=== PATIENT | female | born 1965 | race Caucasian/White ===

== ENCOUNTER 2016-09-13 08:01 | Emergency (ER) | payer BC ==
[~2016-09-13] VITALS: Ht 157.5 cm; Wt 75.7 kg
[2016-09-13 08:06] VITALS: BP 158/93
--- NOTE | 2016-09-13 08:12 | NUR ---
Patient to bed 05.
--- NOTE | 2016-09-13 08:17 | NUR ---
PATIENT PRESENTS TO ED WITH C/O HEADACHE WITH NAUSEA AND DIZZINESS X LAST NIGHT---DENIES INJURY; HX---HTN . DENIES V/D; SKIN IS PINK/WARM/DRY; AAOX4 WITH EVEN AND STEADY GAIT; LUNGS CLEAR BL; HR EVEN AND REGULAR; PT DENIES ANY FEVER, CP, SOB, OR COUGH AT THIS TIME; PATIENT STATES PAIN OF 10/10 AT THIS TIME; VSS; PATIENT POSITIONED FOR COMFORT; HOB ELEVATED; BEDRAILS UP X2; BED DOWN. ER MD MADE AWARE OF PT STATUS.
--- NOTE | 2016-09-13 08:23 | NUR ---
Dr. Salomon evalauting patient at bedside.
[2016-09-13] MEDS ORDERED: diphenhydrAMINE 50 MG/ML VIAL IM ONE (08:25)
[2016-09-13] MEDS ORDERED: PROMETHAZINE 25 MG/ML VIAL IM ONE (08:25)
[2016-09-13] MEDS ORDERED: HYDROmorphone 1 MG/ML AMP IM ONE (09:10)
[2016-09-13 09:50] VITALS: BP 158/77
--- NOTE | 2016-09-13 09:50 | NUR ---
Patient discharged with v/s stable. Written and verbal after care instructions given and explained. Patient alert, oriented and verbalized understanding of instructions. Ambulatory with steady gait. All questions addressed prior to discharge. ID band removed. Patient advised to follow up with PMD. Rx of TYLENOL, ZOFRAN given. Patient educated on indication of medication including possible reaction and side effects. Opportunity to ask questions provided and answered.
== END 2016-09-13 09:50 | disposition home or self-care (01) ==
LOC: MED 08:07
DX: G44.209 Tension-type headache, unspecified, not intractable (principal); I10 Essential (primary) hypertension
CPT/HCPCS: 96372; 99284; J1170; J1200; J2550

== ENCOUNTER 2019-05-07 11:52 | Emergency (ER) | payer BC, OTHER ==
[~2019-05-07] VITALS: Ht 157.5 cm; Wt 70.3 kg
[2019-05-07 12:11] VITALS: BP 168/74
[2019-05-07] MEDS ORDERED: AMLO1CAP PO (12:19)
[2019-05-07] MEDS ORDERED: METF-335 PO (12:19)
[2019-05-07] MEDS ORDERED: GLIP5TAB4 PO (12:19)
--- NOTE | 2019-05-07 12:19 | NUR ---
URINE CUP HANDED TO PT FOR SAMPLE
--- NOTE | 2019-05-07 13:35 | NUR ---
C/O INTERMITTENT SHARP STABBING EPIGASTRIC PAIN X 3 DAYS WITH MINIMAL NAUSEA AND LOOSE STOOLS----PT AWAKE,ALERT,AMBULATORY WITH STEADY GAIT.POSITIVE TENDERNESS IN EPIGASTRIC AREA. HX--DM, HTN RX---
--- NOTE | 2019-05-07 13:35 | NUR ---
Patient ambulated to bed 8 with family. RN evaluating patient at bedside.
[2019-05-07 13:37] LABS: APPEARANCE,URINE CLEAR (CLEAR); BILIRUBIN,URINE NEGATIVE (NEGATIVE); BLOOD, URINE NEGATIVE (NEGATIVE); COLOR,URINE YELLOW (YELLOW); LEUKOCYTE ESTERASE ,URINE NEGATIVE (NEGATIVE); NITRITE, URINE NEGATIVE (NEGATIVE); UGLUCOSE 3+ (NEGATIVE)
[2019-05-07 13:39] LABS: BASOPHILS # (AUTO) 0.1 K/uL (0.00-0.22); BASOPHILS % (AUTO) 0.6 % (0.0-2.0); EOSINOPHILS # (AUTO) 0.2 K/uL (0-0.4); HEMATOCRIT 43.3 % (36-48); HEMOGLOBIN 14.8 g/dL (12.0-16.0); MEAN CORPUSCULAR HEMOGLOBIN 30 pg (27-31); MEAN CORPUSCULAR HGB CONC 34 g/dL (33-37); MEAN CORPUSCULAR VOLUME 87.6 fL (80-94); MONOCYTES # (AUTO) 0.4 K/uL (0.8-1.0); MONOCYTES % (AUTO) 4.5 % (1.7-9.3); NEUTROPHILS # (AUTO) 5.5 K/uL (1.8-7.7); NEUTROPHILS % (AUTO) 67.9 % (42.2-75.2); PLATELET COUNT (AUTO) 214 K/uL (140-450); RED BLOOD CELL COUNT(AUTO) 4.94 MIL/uL (4.20-5.40); RED CELL DISTRIBUTION WIDTH 13.7 % (11.6-13.7); WHITE BLOOD COUNT (AUTO) 8.1 K/uL (4.8-10.8)
[2019-05-07 13:51] LABS: ANION GAP 16.1 (8-16); CARBON DIOXIDE 24.8 mmol/L (21-32); CREATININE 0.7 mg/dL (0.6-1.3); POTASSIUM 3.9 mmol/L (3.5-5.1)
[2019-05-07 13:59] LABS: ALBUMIN 4.1 g/dL (3.4-5.0); TOTAL BILIRUBIN 1.1 mg/dL (0.0-1.0)
[2019-05-07] MEDS ORDERED: KETOROLAC 60 MG/2 ML VIAL IM ONE (15:30)
--- NOTE | 2019-05-07 15:30 | NUR ---
PT'S FAMILY APPROACHED NURSES STATION REQUESTING FOR PAIN MEDICATION. DR. DING MADE AWARE, WILL MONITOR FOR PENDING ORDERS.
[2019-05-07 16:00] VITALS: BP 150/74
--- NOTE | 2019-05-07 16:00 | NUR ---
Patient discharged with v/s stable. Written and verbal after care instructions given and explained abdominal pain. Patient alert, oriented and verbalized understanding of instructions. Ambulatory with steady gait. All questions addressed prior to discharge. ID band removed. Patient advised to follow up with PMD. Rx of imodium,motrin,prilosec,zofran , norco given. Patient educated on indication of medication including possible reaction and side effects. Opportunity to ask questions provided and answered.Excuse from work given.
== END 2019-05-07 16:00 | disposition home or self-care (01) ==
LOC: MED 11:52
DX: R10.13 Epigastric pain (principal); R19.7 Diarrhea, unspecified; R11.0 Nausea; E11.9 Type 2 diabetes mellitus without complications; I10 Essential (primary) hypertension; Z79.84 Long term (current) use of oral hypoglycemic drugs; Z79.899 Other long term (current) drug therapy
CPT/HCPCS: 36415; 80053; 81003; 83690; 85025; 96372; 99283; J1885

== ENCOUNTER 2020-07-28 12:34 | Emergency (ER) | payer OTHER ==
[~2020-07-28] VITALS: Ht 157.5 cm; Wt 56.2 kg
[~2020-07-28 12:34] MED LIST: AMLO1CAP PO; GLIP5TAB14 PO; METF-335 PO
[2020-07-28 12:39] VITALS: BP 147/83
[2020-07-28] MEDS ORDERED: AMLO1CAP PO (12:56)
[2020-07-28] MEDS ORDERED: GLIP10TA3 PO (12:56)
[2020-07-28] MEDS ORDERED: METF500T PO (12:56)
[2020-07-28 13:05] VITALS: BP 147/83
== END 2020-07-28 13:05 | disposition home or self-care (01) ==
LOC: MED 12:34
DX: E11.9 Type 2 diabetes mellitus without complications (principal); I10 Essential (primary) hypertension; Z76.0 Encounter for issue of repeat prescription; Z79.899 Other long term (current) drug therapy; Z79.84 Long term (current) use of oral hypoglycemic drugs
CPT/HCPCS: 99281

== ENCOUNTER 2022-04-26 23:24 | Emergency (ER) | payer OTHER ==
[~2022-04-26] VITALS: Ht 154.9 cm; Wt 62.1 kg
[~2022-04-26 23:24] MED LIST changes: +GLIP10TA3 PO; +METF-346 PO
[2022-04-26 23:49] VITALS: BP 122/73
--- NOTE | 2022-04-26 23:53 | NUR ---
TO LOBBY A/W BED AMBULATORY
--- NOTE | 2022-04-27 01:45 | NUR ---
Patient being evaluated by physician
[2022-04-27] MEDS ORDERED: NACL 0.9% 500 ML IV ONE (01:50)
[2022-04-27] MEDS ORDERED: ONDANSETRON 4 MG/2 ML VIAL IVP ONE (01:50)
--- NOTE | 2022-04-27 01:50 | NUR ---
PTs daughter: LARRY GONSALEZ # [phone]
--- NOTE | 2022-04-27 01:50 | NUR ---
PT TO BED 11
[2022-04-27 02:36] LABS: BASOPHILS % (AUTO) 0.4 % (0.0-2.0); EOSINOPHILS # (AUTO) 0.2 K/uL (0-0.4); EOSINOPHILS % (AUTO) 1.7 % (0.0-4.0); HEMATOCRIT 41.6 % (36-48); HEMOGLOBIN 14.5 g/dL (12.0-16.0); LYMPHOCYTES # (AUTO) 0.8 K/uL (2.5-16.5); LYMPHOCYTES % (AUTO) 8.4 % (20.5-51.1); MEAN CORPUSCULAR HEMOGLOBIN 30 pg (27-31); MEAN CORPUSCULAR HGB CONC 35 g/dL (33-37); MEAN CORPUSCULAR VOLUME 85.7 fL (80-94); MONOCYTES # (AUTO) 0.5 K/uL (0.8-1.0); MONOCYTES % (AUTO) 4.9 % (1.7-9.3); NEUTROPHILS # (AUTO) 8.2 K/uL (1.8-7.7); NEUTROPHILS % (AUTO) 84.6 % (42.2-75.2); PLATELET COUNT (AUTO) 274 K/uL (140-450); RED BLOOD CELL COUNT(AUTO) 4.85 MIL/uL (4.20-5.40); RED CELL DISTRIBUTION WIDTH 13.3 % (11.6-13.7); WHITE BLOOD COUNT (AUTO) 9.7 K/uL (4.8-10.8)
[2022-04-27 02:38] LABS: APPEARANCE,URINE CLEAR (CLEAR); BILIRUBIN,URINE NEGATIVE (NEGATIVE); BLOOD, URINE NEGATIVE (NEGATIVE); COLOR,URINE YELLOW (YELLOW); LEUKOCYTE ESTERASE ,URINE NEGATIVE (NEGATIVE); NITRITE, URINE NEGATIVE (NEGATIVE); UGLUCOSE 3+ (NEGATIVE)
[2022-04-27 02:45] LABS: ALBUMIN 3.9 g/dL (3.4-5.0); ANION GAP 13.4 (8-16); CARBON DIOXIDE 30.6 mmol/L (21-32); CREATININE 0.7 mg/dL (0.6-1.3); TOTAL BILIRUBIN 1.2 mg/dL (0.0-1.0)
[2022-04-27] MEDS ORDERED: INSULIN REGULAR, HUMAN 100 UNIT/ML VIAL IVP ONE (02:50)
--- NOTE | 2022-04-27 03:40 | NUR ---
PT RETURN FROM RADIOLOGY
[2022-04-27 04:45] VITALS: BP 122/73
--- NOTE | 2022-04-27 04:45 | NUR ---
Patient discharged with v/s stable. Written and verbal after care instructions given and explained. Patient verbalized understanding. Ambulatory with steady gait. All questions addressed prior to discharge. Advised to follow up with PMD.
== END 2022-04-27 04:45 | disposition home or self-care (01) ==
LOC: MED 23:24
DX: R10.84 Generalized abdominal pain (principal); E11.65 Type 2 diabetes mellitus with hyperglycemia; R11.10 Vomiting, unspecified; I10 Essential (primary) hypertension; Z79.899 Other long term (current) drug therapy; Z79.84 Long term (current) use of oral hypoglycemic drugs
CPT/HCPCS: 36415; 74176; 80053; 81003; 85025; 96361; 96374; 96375; 99284; J1815; J2405; J7030

== ENCOUNTER 2022-07-27 21:48 | Emergency (ER) | payer OTHER ==
[~2022-07-27] VITALS: Ht 154.9 cm; Wt 63.5 kg
[2022-07-27 22:00] VITALS: BP 139/80
--- NOTE | 2022-07-27 22:03 | NUR ---
TO LOBBY A/W BED AMBULATORY
--- NOTE | 2022-07-28 00:34 | NUR ---
Dr. Cárdenas examining patient.
--- NOTE | 2022-07-28 00:44 | NUR ---
PT TAKEN TO RADIOLOGY
[2022-07-28 01:41] LABS: BASOPHILS % (AUTO) 0.5 % (0.0-2.0); EOSINOPHILS # (AUTO) 0.2 K/uL (0-0.4); EOSINOPHILS % (AUTO) 2.5 % (0.0-4.0); HEMATOCRIT 38.9 % (36-48); HEMOGLOBIN 13.6 g/dL (12.0-16.0); LYMPHOCYTES # (AUTO) 1.8 K/uL (2.5-16.5); LYMPHOCYTES % (AUTO) 27.7 % (20.5-51.1); MEAN CORPUSCULAR HEMOGLOBIN 30 pg (27-31); MEAN CORPUSCULAR HGB CONC 35 g/dL (33-37); MEAN CORPUSCULAR VOLUME 86.1 fL (80-94); MONOCYTES # (AUTO) 0.5 K/uL (0.8-1.0); MONOCYTES % (AUTO) 7.4 % (1.7-9.3); NEUTROPHILS # (AUTO) 3.9 K/uL (1.8-7.7); NEUTROPHILS % (AUTO) 61.9 % (42.2-75.2); PLATELET COUNT (AUTO) 222 K/uL (140-450); RED BLOOD CELL COUNT(AUTO) 4.52 MIL/uL (4.20-5.40); RED CELL DISTRIBUTION WIDTH 13.1 % (11.6-13.7); WHITE BLOOD COUNT (AUTO) 6.4 K/uL (4.8-10.8)
[2022-07-28 02:00] LABS: ALBUMIN 3.9 g/dL (3.4-5.0); ANION GAP 13.3 (8-16); CARBON DIOXIDE 26.6 mmol/L (21-32); CREATININE 0.6 mg/dL (0.6-1.3); POTASSIUM 3.9 mmol/L (3.5-5.1); TOTAL BILIRUBIN 0.8 mg/dL (0.0-1.0)
[2022-07-28] MEDS ORDERED: NAPR-54 PO (03:41)
[2022-07-28 03:45] VITALS: BP 121/78
--- NOTE | 2022-07-28 03:45 | NUR ---
Patient discharged with v/s stable. Written and verbal after care instructions given and explained, BY Patient alert, oriented and verbalized understanding of instructions. Ambulatory with steady gait. All questions addressed prior to discharge. ID band removed. Patient advised to follow up with PMD. Rx OF NAPROSYN given. Patient educated on indication of medication including possible reaction and side effects. Opportunity to ask questions provided and answered.
== END 2022-07-28 03:45 | disposition home or self-care (01) ==
LOC: MED 21:48
DX: S23.8XXA Sprain of other specified parts of thorax, initial encounter (principal); S43.491A Other sprain of right shoulder joint, initial encounter; E11.9 Type 2 diabetes mellitus without complications; I10 Essential (primary) hypertension; Z79.4 Long term (current) use of insulin; Z79.899 Other long term (current) drug therapy; X58.XXXA Exposure to other specified factors, initial encounter; Y93.89 Activity, other specified; Y92.89 Other specified places as the place of occurrence of the external cause; Y99.8 Other external cause status
CPT/HCPCS: 36415; 71250; 76641; 80053; 85025; 99284; Q0092

== ENCOUNTER 2022-08-26 07:24 | Emergency (ER) | payer OTHER ==
[~2022-08-26] VITALS: Ht 149.9 cm; Wt 66.7 kg
[~2022-08-26 07:24] MED LIST changes: +NAPR-54 PO
[2022-08-26 07:34] VITALS: BP 140/86
--- NOTE | 2022-08-26 07:45 | NUR ---
ASSESMENT PER FLOWSHEET. COMFORT MEASURES AND SUPPORTIVE CARE INITIATED. PT STATES SHE IS BEING SEEN BY PMD AND HAS HAD BREAST ULTRASOUND AND MAMMOGRAM FOR PAIN X 2 MONTHS.
--- NOTE | 2022-08-26 08:07 | NUR ---
SEEN BY FABIAN. PACE ANALYST ALEX BELL.
[2022-08-26] MEDS ORDERED: KETOROLAC 60 MG/2 ML VIAL IM ONE (08:10)
--- NOTE | 2022-08-26 08:20 | NUR ---
MEDICATED FOR PAIN PER ORDER. PT RUTHIE WELL.
[2022-08-26] MEDS ORDERED: ACET-8905 PO (08:43)
[2022-08-26 08:58] VITALS: BP 122/83
== END 2022-08-26 08:58 | disposition home or self-care (01) ==
LOC: MED 07:24
DX: R07.89 Other chest pain (principal); E11.9 Type 2 diabetes mellitus without complications; I10 Essential (primary) hypertension; Z90.710 Acquired absence of both cervix and uterus; Z79.899 Other long term (current) drug therapy; Z79.1 Long term (current) use of non-steroidal anti-inflammatories (NSAID)
CPT/HCPCS: 93005; 96372; 99283; J1885

== ENCOUNTER 2022-09-15 18:53 | Emergency (ER) | payer OTHER ==
[~2022-09-15] VITALS: Ht 147.3 cm; Wt 64.0 kg
[~2022-09-15 18:53] MED LIST changes: +ACET-8905 PO
[2022-09-15 20:18] VITALS: BP 143/84
--- NOTE | 2022-09-15 20:35 | NUR ---
PT to bed 12
[2022-09-15] MEDS ORDERED: NACL 0.9% 2,000 ML IV ONE (20:45)
--- NOTE | 2022-09-15 20:47 | NUR ---
Patient resting in bed, A/Ox4, chest rise and fall symmetrical, no c/o pain of s/s of distress, on monitor.
[2022-09-15 21:00] LABS: BASOPHILS % (AUTO) 0.4 % (0.0-2.0); EOSINOPHILS % (AUTO) 0.1 % (0.0-4.0); HEMATOCRIT 39.6 % (36-48); HEMOGLOBIN 13.8 g/dL (12.0-16.0); LYMPHOCYTES # (AUTO) 1.5 K/uL (2.5-16.5); LYMPHOCYTES % (AUTO) 21.6 % (20.5-51.1); MEAN CORPUSCULAR HEMOGLOBIN 30 pg (27-31); MEAN CORPUSCULAR HGB CONC 35 g/dL (33-37); MONOCYTES # (AUTO) 0.5 K/uL (0.8-1.0); MONOCYTES % (AUTO) 7.6 % (1.7-9.3); NEUTROPHILS % (AUTO) 70.3 % (42.2-75.2); PLATELET COUNT (AUTO) 256 K/uL (140-450); RED BLOOD CELL COUNT(AUTO) 4.66 MIL/uL (4.20-5.40); RED CELL DISTRIBUTION WIDTH 13.3 % (11.6-13.7); WHITE BLOOD COUNT (AUTO) 7.1 K/uL (4.8-10.8)
[2022-09-15 21:11] LABS: ANION GAP 13.7 (8-16); CARBON DIOXIDE 25.5 mmol/L (21-32); CREATININE 0.7 mg/dL (0.6-1.3); POTASSIUM 4.2 mmol/L (3.5-5.1)
[2022-09-15] MEDS ORDERED: INSULIN LISPRO 100 UNITS/ML VIAL SUBQ ONE (21:25)
--- NOTE | 2022-09-15 22:00 | NUR ---
Patient resting in bed, A/Ox4, chest rise and fall symmetrical, no c/o pain of s/s of distress, on monitor.
[2022-09-15] MEDS ORDERED: NACL 0.9% 1,000 ML IV ONE (22:40)
[2022-09-15 23:20] VITALS: BP 131/85
== END 2022-09-15 23:20 | disposition home or self-care (01) ==
LOC: MED 18:53
DX: E11.65 Type 2 diabetes mellitus with hyperglycemia (principal); I10 Essential (primary) hypertension; R06.02 Shortness of breath; R63.1 Polydipsia; R35.89 Other polyuria; Z79.4 Long term (current) use of insulin; Z79.899 Other long term (current) drug therapy
CPT/HCPCS: 36415; 80048; 82948; 85025; 96360; 96361; 96372; 99283; J1815; J7030

== ENCOUNTER 2022-09-19 04:03 | Emergency (ER) | payer OTHER ==
[~2022-09-19] VITALS: Ht 152.4 cm; Wt 64.0 kg
[2022-09-19 04:03] VITALS: BP 149/76
--- NOTE | 2022-09-19 04:06 | NUR ---
TO LOBBY A/W BED AMBULATORY
[2022-09-19] MEDS ORDERED: NACL 0.9% 1,000 ML IV ONE (04:50)
--- NOTE | 2022-09-19 04:50 | NUR ---
MEDICATED PER [facility]MDS ORDER, TOLERATED WELL.
[2022-09-19 04:59] LABS: BASOPHILS % (AUTO) 0.6 % (0.0-2.0); EOSINOPHILS # (AUTO) 0.1 K/uL (0-0.4); EOSINOPHILS % (AUTO) 0.7 % (0.0-4.0); HEMATOCRIT 42.3 % (36-48); HEMOGLOBIN 14.8 g/dL (12.0-16.0); LYMPHOCYTES # (AUTO) 1.6 K/uL (2.5-16.5); LYMPHOCYTES % (AUTO) 22.7 % (20.5-51.1); MEAN CORPUSCULAR HEMOGLOBIN 30 pg (27-31); MEAN CORPUSCULAR HGB CONC 35 g/dL (33-37); MEAN CORPUSCULAR VOLUME 84.9 fL (80-94); MONOCYTES # (AUTO) 0.4 K/uL (0.8-1.0); MONOCYTES % (AUTO) 5.3 % (1.7-9.3); NEUTROPHILS % (AUTO) 70.7 % (42.2-75.2); PLATELET COUNT (AUTO) 243 K/uL (140-450); RED BLOOD CELL COUNT(AUTO) 4.97 MIL/uL (4.20-5.40); RED CELL DISTRIBUTION WIDTH 13.2 % (11.6-13.7); WHITE BLOOD COUNT (AUTO) 7.1 K/uL (4.8-10.8)
[2022-09-19 05:07] LABS: ALBUMIN 4.5 g/dL (3.4-5.0); ANION GAP 14.2 (8-16); CARBON DIOXIDE 27.9 mmol/L (21-32); CREATININE 0.7 mg/dL (0.6-1.3); POTASSIUM 4.1 mmol/L (3.5-5.1)
[2022-09-19] MEDS ORDERED: INSULIN REGULAR, HUMAN 100 UNIT/ML VIAL SUBQ ONE (05:45)
[2022-09-19 06:27] VITALS: BP 121/80
== END 2022-09-19 06:27 | disposition home or self-care (01) ==
LOC: MED 04:03
DX: E11.65 Type 2 diabetes mellitus with hyperglycemia (principal); E86.0 Dehydration; Z79.899 Other long term (current) drug therapy; Z79.4 Long term (current) use of insulin
CPT/HCPCS: 36415; 80053; 85025; 96360; 96372; 99283; J1815; J7030

== ENCOUNTER 2022-12-13 21:15 | Emergency (ER) | payer OTHER ==
[~2022-12-13] VITALS: Ht 157.5 cm; Wt 63.5 kg
[2022-12-13 21:39] VITALS: BP 135/78; PULSE 103; RESP 16; TEMP 97.4; O2SAT 98
[2022-12-13] MEDS ORDERED: NIRM1TAB5 PO (22:35)
[2022-12-13] MEDS ORDERED: ACET-10509 PO (22:36)
[2022-12-13] MEDS ORDERED: IBUP-1842 PO (22:36)
[2022-12-13 23:00] VITALS: BP 120/70; PULSE 102; RESP 18; O2SAT 97
== END 2022-12-13 23:00 | disposition home or self-care (01) ==
LOC: MED 21:15
DX: U07.1 COVID-19 (principal); E11.9 Type 2 diabetes mellitus without complications; I10 Essential (primary) hypertension; Z79.899 Other long term (current) drug therapy; Z79.01 Long term (current) use of anticoagulants
CPT/HCPCS: 99283

== ENCOUNTER 2023-07-28 07:45 | Emergency (ER) | payer SELFPAY ==
[~2023-07-28] VITALS: Ht 149.9 cm; Wt 64.6 kg
[~2023-07-28 07:45] MED LIST changes: +ACET-10509 PO; -GLIP5TAB14 PO; +GLIP5TAB24 PO; +IBUP-1842 PO; +NIRM1TAB5 PO
[2023-07-28 07:50] VITALS: BP 132/78; PULSE 99; RESP 16; TEMP 97.1; O2SAT 100
[2023-07-28] MEDS: KETOROLAC 30 MG/ML VIAL IVP ONE (08:28)
[2023-07-28 08:35] LABS: BASOPHILS % (AUTO) 0.7 % (0.0-2.0); EOSINOPHILS # (AUTO) 0.1 K/uL (0-0.4); EOSINOPHILS % (AUTO) 1.9 % (0.0-4.0); HEMATOCRIT 39.1 % (36-48); HEMOGLOBIN 13.7 g/dL (12.0-16.0); LYMPHOCYTES # (AUTO) 1.5 K/uL (2.5-16.5); LYMPHOCYTES % (AUTO) 24.4 % (20.5-51.1); MEAN CORPUSCULAR HEMOGLOBIN 30 pg (27-31); MEAN CORPUSCULAR HGB CONC 35 g/dL (33-37); MONOCYTES # (AUTO) 0.3 K/uL (0.8-1.0); MONOCYTES % (AUTO) 5.2 % (1.7-9.3); NEUTROPHILS # (AUTO) 4.2 K/uL (1.8-7.7); NEUTROPHILS % (AUTO) 67.8 % (42.2-75.2); PLATELET COUNT (AUTO) 214 K/uL (140-450); RED BLOOD CELL COUNT(AUTO) 4.54 MIL/uL (4.20-5.40); RED CELL DISTRIBUTION WIDTH 13.6 % (11.6-13.7); WHITE BLOOD COUNT (AUTO) 6.3 K/uL (4.8-10.8)
[2023-07-28 08:47] LABS: ANION GAP 12.1 (8-16); CALCIUM 8.7 mg/dL (8.5-10.1); CARBON DIOXIDE 27.7 mmol/L (21-32); CREATININE 0.6 mg/dL (0.6-1.3); POTASSIUM 3.8 mmol/L (3.5-5.1)
[2023-07-28 08:51] LABS: BILIRUBIN,DIRECT 0.1 mg/dL (0.0-0.3); TOTAL PROTEIN, SERUM 7.5 g/dL (6.4-8.2)
[2023-07-28 09:28] LABS: APPEARANCE,URINE CLEAR (CLEAR); BILIRUBIN,URINE NEGATIVE (NEGATIVE); BLOOD, URINE NEGATIVE (NEGATIVE); COLOR,URINE YELLOW (YELLOW); LEUKOCYTE ESTERASE ,URINE NEGATIVE (NEGATIVE); NITRITE, URINE NEGATIVE (NEGATIVE); PROTEIN,URINE NEGATIVE (NEGATIVE); UGLUCOSE 3+ (NEGATIVE); UROBILINOGEN,URINE 0.2 EU/dL (0.2 - 1)
[2023-07-28] MEDS ORDERED: MIRABULK PO (09:30)
[2023-07-28 09:32] LABS: BACTERIA,URINE OCCASSIONAL /HPF (None Seen); RBC,URINE 0-5 /HPF (0-5); SQUAMOUS EPITHELIAL CELL,UR 0-3 (FEW) /LPF (0-3 (FEW)); WBC,URINE 0-5 /HPF (0-5)
[2023-07-28 09:51] VITALS: BP 144/72; PULSE 79; RESP 15; TEMP 98; O2SAT 99
== END 2023-07-28 09:53 | disposition home or self-care (01) ==
LOC: MED 07:45
DX: R10.84 Generalized abdominal pain (principal); K59.00 Constipation, unspecified; E11.65 Type 2 diabetes mellitus with hyperglycemia; I10 Essential (primary) hypertension; Z79.4 Long term (current) use of insulin; Z79.899 Other long term (current) drug therapy
CPT/HCPCS: 36415; 74176; 80048; 80076; 81001; 81025; 83690; 85025; 96374; 99285; J1885

== ENCOUNTER 2023-08-05 05:50 | Emergency (ER) | payer MEDICAID ==
[~2023-08-05] VITALS: Ht 152.4 cm; Wt 62.6 kg
[~2023-08-05 05:50] MED LIST changes: +MIRABULK PO
[2023-08-05 06:04] VITALS: BP 131/75; PULSE 85; RESP 16; TEMP 97.6; O2SAT 99
[2023-08-05 07:40] LABS: BASOPHILS # (AUTO) 0.1 K/uL (0.00-0.22); BASOPHILS % (AUTO) 0.9 % (0.0-2.0); EOSINOPHILS # (AUTO) 0.1 K/uL (0-0.4); HEMATOCRIT 40.2 % (36-48); LYMPHOCYTES # (AUTO) 1.4 K/uL (2.5-16.5); LYMPHOCYTES % (AUTO) 25.8 % (20.5-51.1); MEAN CORPUSCULAR HEMOGLOBIN 30 pg (27-31); MEAN CORPUSCULAR HGB CONC 35 g/dL (33-37); MEAN CORPUSCULAR VOLUME 86.3 fL (80-94); MONOCYTES # (AUTO) 0.3 K/uL (0.8-1.0); MONOCYTES % (AUTO) 5.7 % (1.7-9.3); NEUTROPHILS # (AUTO) 3.5 K/uL (1.8-7.7); NEUTROPHILS % (AUTO) 65.6 % (42.2-75.2); PLATELET COUNT (AUTO) 203 K/uL (140-450); RED BLOOD CELL COUNT(AUTO) 4.66 MIL/uL (4.20-5.40); RED CELL DISTRIBUTION WIDTH 13.5 % (11.6-13.7); WHITE BLOOD COUNT (AUTO) 5.4 K/uL (4.8-10.8)
[2023-08-05 08:03] LABS: ANION GAP 12.5 (8-16); CALCIUM 8.6 mg/dL (8.5-10.1); CARBON DIOXIDE 29.3 mmol/L (21-32); CREATININE 0.6 mg/dL (0.6-1.3); POTASSIUM 3.8 mmol/L (3.5-5.1)
[2023-08-05 08:05] LABS: APPEARANCE,URINE CLEAR (CLEAR); BILIRUBIN,URINE NEGATIVE (NEGATIVE); BLOOD, URINE NEGATIVE (NEGATIVE); COLOR,URINE YELLOW (YELLOW); LEUKOCYTE ESTERASE ,URINE NEGATIVE (NEGATIVE); NITRITE, URINE NEGATIVE (NEGATIVE); PROTEIN,URINE NEGATIVE (NEGATIVE); UGLUCOSE 3+ (NEGATIVE); UROBILINOGEN,URINE 0.2 EU/dL (0.2 - 1)
[2023-08-05] MEDS ORDERED: KETOROLAC 30 MG/ML VIAL ONE (09:07)
[2023-08-05] MEDS: KETOROLAC 30 MG/ML VIAL IM ONE (09:31)
[2023-08-05] MEDS ORDERED: IBUP-2213 PO (10:33)
[2023-08-05 10:45] VITALS: BP 122/70; PULSE 78; RESP 16; TEMP 98; O2SAT 99
== END 2023-08-05 10:45 | disposition home or self-care (01) ==
LOC: MED 05:50
DX: R10.32 Left lower quadrant pain (principal); E11.65 Type 2 diabetes mellitus with hyperglycemia; I10 Essential (primary) hypertension; Z90.710 Acquired absence of both cervix and uterus; Z79.1 Long term (current) use of non-steroidal anti-inflammatories (NSAID); Z79.84 Long term (current) use of oral hypoglycemic drugs; Z79.899 Other long term (current) drug therapy
CPT/HCPCS: 36415; 74018; 80048; 81003; 83690; 85025; 96372; 99284; J1885

== ENCOUNTER 2023-08-18 07:20 | Emergency (ER) | payer MEDICAID ==
[~2023-08-18] VITALS: Ht 157.5 cm; Wt 65.8 kg
[~2023-08-18 07:20] MED LIST changes: +IBUP-2213 PO; +NAPR-337 PO; -NAPR-54 PO
[2023-08-18 07:28] VITALS: BP 138/85; PULSE 86; RESP 18; TEMP 98.6; O2SAT 99
[2023-08-18] MEDS ORDERED: TRAM-748 PO (07:56)
[2023-08-18 08:12] VITALS: BP 104/76; PULSE 84; RESP 20; TEMP 98.2; O2SAT 98
[2023-08-19] MEDS ORDERED: MECL-303 PO (05:51)
== END 2023-08-18 08:09 | disposition home or self-care (01) ==
LOC: MED 07:20
DX: K40.90 Unilateral inguinal hernia, without obstruction or gangrene, not specified as recurrent (principal); E11.9 Type 2 diabetes mellitus without complications; I10 Essential (primary) hypertension; Z79.84 Long term (current) use of oral hypoglycemic drugs; Z79.1 Long term (current) use of non-steroidal anti-inflammatories (NSAID); Z79.899 Other long term (current) drug therapy
CPT/HCPCS: 99281

== ENCOUNTER 2023-08-19 04:30 | Emergency (ER) | payer MEDICAID ==
[~2023-08-19] VITALS: Ht 154.9 cm; Wt 62.6 kg
[~2023-08-19 04:30] MED LIST changes: +TRAM-748 PO
[2023-08-19 04:34] VITALS: BP 145/66; PULSE 82; RESP 18; TEMP 97.5; O2SAT 99
[2023-08-19 04:52] VITALS: O2SAT 98
[2023-08-19] MEDS: MECLIZINE 25 MG TAB PO ONE (04:58)
[2023-08-19] MEDS ORDERED: MECL-303 PO (05:51)
[2023-08-19 05:57] VITALS: BP 133/67; PULSE 86; RESP 15; TEMP 98; O2SAT 97
== END 2023-08-19 05:57 | disposition home or self-care (01) ==
LOC: MED 04:30
DX: H81.10 Benign paroxysmal vertigo, unspecified ear (principal); E11.9 Type 2 diabetes mellitus without complications; I10 Essential (primary) hypertension; Z79.84 Long term (current) use of oral hypoglycemic drugs; Z79.1 Long term (current) use of non-steroidal anti-inflammatories (NSAID); Z79.899 Other long term (current) drug therapy; Z79.891 Long term (current) use of opiate analgesic
CPT/HCPCS: 99282; J8597

== ENCOUNTER 2023-09-06 18:19 | Emergency (ER) | payer MEDICAID ==
[~2023-09-06] VITALS: Ht 182.9 cm; Wt 61.9 kg
[~2023-09-06 18:19] MED LIST changes: +MECL-303 PO
[2023-09-06 18:31] VITALS: BP 139/77; PULSE 91; RESP 16; TEMP 98; O2SAT 98
[2023-09-06 19:28] LABS: APPEARANCE,URINE CLEAR (CLEAR); BILIRUBIN,URINE NEGATIVE (NEGATIVE); BLOOD, URINE NEGATIVE (NEGATIVE); COLOR,URINE YELLOW (YELLOW); LEUKOCYTE ESTERASE ,URINE NEGATIVE (NEGATIVE); NITRITE, URINE NEGATIVE (NEGATIVE); PROTEIN,URINE NEGATIVE (NEGATIVE); UGLUCOSE 1+ (NEGATIVE); UROBILINOGEN,URINE 0.2 EU/dL (0.2 - 1)
[2023-09-06] MEDS ORDERED: PEG4000P3 PO (19:38)
[2023-09-06] MEDS ORDERED: DOCU-299 PO (19:38)
[2023-09-07] MEDS ORDERED: [UNRECOGNIZED DRUG - CODE] RC (21:31)
[2023-09-07] MEDS ORDERED: POLY17PD72 PO (21:31)
== END 2023-09-06 19:40 | disposition home or self-care (01) ==
LOC: MED 18:19
DX: K59.00 Constipation, unspecified (principal); E11.9 Type 2 diabetes mellitus without complications; I10 Essential (primary) hypertension; Z79.4 Long term (current) use of insulin; Z79.899 Other long term (current) drug therapy
CPT/HCPCS: 74018; 81003; 99284

== ENCOUNTER 2023-09-07 19:43 | Emergency (ER) | payer MEDICAID ==
[~2023-09-07] VITALS: Ht 152.4 cm; Wt 62.1 kg
[~2023-09-07 19:43] MED LIST changes: +DOCU-299 PO; +PEG4000P3 PO
[2023-09-07 20:05] VITALS: BP 140/77; PULSE 101; RESP 19; TEMP 98.2; O2SAT 98
[2023-09-07] MEDS ORDERED: [UNRECOGNIZED DRUG - CODE] RC (21:31)
[2023-09-07] MEDS ORDERED: POLY17PD72 PO (21:31)
[2023-09-07] MEDS: GLYCERIN ADULT 1 SUPP RC ONE (21:49)
== END 2023-09-07 21:48 | disposition home or self-care (01) ==
LOC: MED 19:43
DX: K59.00 Constipation, unspecified (principal); K92.1 Melena; E11.9 Type 2 diabetes mellitus without complications; I10 Essential (primary) hypertension; Z79.4 Long term (current) use of insulin; Z79.899 Other long term (current) drug therapy
CPT/HCPCS: 99282